=== PATIENT | female | born 1995 | race Caucasian/White ===

== ENCOUNTER 2018-09-07 08:58 | Day surgery (SDC) | payer MEDICAID, OTHER ==
[2018-09-07] MEDS ORDERED: BUPIVACAINE HCL 0.25 % INJ/PF (2.5 MG/1 ML) 30 ML VIAL ONE (09:03)
[2018-09-07] MEDS ORDERED: CLINDAMYCIN 900 MG/D5W RTU 900 MG/50 ML RTUPB IV ONE (09:14)
[2018-09-07] MEDS ORDERED: DEXMEDETOMIDINE INJ 80 MCG/20 ML VIAL IV ONE (09:42)
[2018-09-07] MEDS ORDERED: EPHEDRINE SULFATE INJ 50 MG/1 ML AMPULE ONE (09:42)
[2018-09-07] MEDS ORDERED: MIDAZOLAM 2 MG/2 ML INJ ONE (09:42)
[2018-09-07] MEDS ORDERED: FENTANYL CITRATE INJ/PF 100 MCG/2 ML AMPUL ONE (09:42)
[2018-09-07] MEDS ORDERED: PROPOFOL INJ 200 MG/20 ML VIAL IV ONE (09:42)
[2018-09-07] MEDS ORDERED: ACETAMINOPHEN 1,000 MG/100 ML RTUPB IV ONE (09:44)
[2018-09-07 10:00] LABS: HEMATOCRIT 41.9 % (36.0-47.0); MEAN CORPUSCULAR HEMOGLOBIN 30.4 pg (27.0-33.4); MEAN CORPUSCULAR HGB CONC 33.5 g/dL (32.0-36.0); MEAN CORPUSCULAR VOLUME 91 fl (80-97); PLATELET COUNT 177 10^3/uL (150-450); RED BLOOD COUNT 4.62 10^6/uL (3.72-5.28); RED CELL DISTRIBUTION WIDTH 12.2 % (11.5-14.0); WHITE BLOOD COUNT 4.1 10^3/uL (4.0-10.5)
[2018-09-07] MEDS ORDERED: FENTANYL CITRATE INJ/PF 100 MCG/2 ML AMPUL IV PRN ×3 (10:54)
[2018-09-07] MEDS ORDERED: DIPHENHYDRAMINE HCL 50 MG/ML VIAL IV PRN (10:54)
[2018-09-07] MEDS ORDERED: MEPERIDINE HCL/PF INJ 25 MG/1 ML DISP.SYRIN IV PRN (10:54)
[2018-09-07] MEDS ORDERED: ONDANSETRON HCL INJ/PF 4 MG/2 ML SDV IV PRN (10:54)
[2018-09-07] MEDS ORDERED: PROMETHAZINE HCL INJ 25 MG/1 ML VIAL IV PRN ×2 (10:54)
[2018-09-07] MEDS ORDERED: MORPHINE SULFATE 10 MG/ML INJ IV PRN (10:54)
[2018-09-07] MEDS ORDERED: CLINDAMYCIN 900 MG/D5W RTU 900 MG/50 ML RTUPB IV PRN (11:00)
[2018-09-07] MEDS: FENTANYL CITRATE INJ/PF 100 MCG/2 ML AMPUL ONE ×2 (11:52→12:05)
[2018-09-07] MEDS ORDERED: MORPHINE SULFATE 10 MG/ML INJ IM PRN (12:12)
[2018-09-07] MEDS ORDERED: HYDROCODONE/ACETAMINOPHEN 5-325 MG TABLET PO PRN ×2 (12:13)
[2018-09-07] MEDS ORDERED: IBUPROFEN 800 MG TABLET PO PRN (12:13)
--- NOTE | 2018-09-07 12:24 | OPERATIVE REPORT E ---
Operative Report NAME: HARSHIL ANDUJAR : 1995 AGE: 22Y DATE OF SURGERY: 09/07/2018 ROOM: PREOPERATIVE DIAGNOSIS: Endometrioma of cutaneous scar. POSTOPERATIVE DIAGNOSIS: Endometrioma of cutaneous scar. OPERATION: Excision of endometrioma of cutaneous scar. SURGEON: JACKIE SALMON M.D. TECHNICAL PROJECT MANAGER: Carissa Tavarez 1st rn first assistant surgical elastic knitter ANESTHESIA: Rick Hinkle M.D. with an LMA. FINDINGS: A 5 cm long endometrioma incorporating the fascia. COMPLICATIONS: None. ESTIMATED BLOOD LOSS: 100 mL. SPECIMENS REMOVED: Endometrioma. PROCEDURE IN DETAIL: The patient was taken to the operating room, prepared and draped in a normal sterile fashion in a supine position. The abdomen was marked in the midline after palpating the lesion, and the skin was scored with a #10 blade. The incision was extended with the #10 blade down until the endometrioma was palpable in the cutaneous tissue. The endometrioma was then grasped with a Sania for manipulation, and using Metzenbaums and the scalpel as needed the lesion was excised using careful dissection. As we went deeper we found that the fascia was incorporated into the lesion. Therefore, when we reached the fascia, the fascia was excised and extended around the lesion using the scalpel and Metzenbaums as needed. Once we were able to completely undermine the lesion, the lesion was then amputated using the Metzenbaums. The fascia was then closed using 0 PDS and the subcutaneous layer was closed with interrupted plain catgut. The skin was then closed with 4-0 Vicryl. The incision was copiously irrigated during the procedure using sterile water, and the incision was also injected with 20 mL of lidocaine with epinephrine for anesthesia and hemostasis. The patient tolerated the procedure well. Sponge, lap, and needle counts were correct x2, and the patient was taken to recovery in stable condition. DICTATING PHYSICIAN: JACKIE SALMON M.D. [id number] PHY#: [id number] ID: [id number] JOB#: [id number] ACCT: [id number] cc:JACKIE SALMON M.D. >
[2018-09-07] MEDS ORDERED: IBUPROFEN 800 MG TABLET ONE (12:41)
[2018-09-07 13:15] VITALS: BP 117/82
[2018-09-07] MEDS ORDERED: RINGERS SOLUTION,LACTATED 1,000 ML IV PRN (13:27)
[2018-09-07] MEDS ORDERED: ONDANSETRON HCL INJ/PF 4 MG/2 ML SDV ONE (14:12)
[2018-09-07] MEDS ORDERED: KETOROLAC TROMETHAMINE 60 MG/2 ML SDV ONE (14:12)
[2018-09-07] MEDS ORDERED: SUCCINYLCHOLINE CHLORIDE INJ 200 MG/10 ML VIAL ONE (14:12)
[2018-09-07] MEDS ORDERED: DEXAMETHASONE SOD PHOSPHATE INJ 4 MG/1 ML VIAL ONE (14:12)
[2018-09-07] MEDS ORDERED: LIDOCAINE 2% INJ-PF (20 MG/ML) 2 ML AMPUL ONE (14:12)
[2018-09-07] MEDS ORDERED: METOCLOPRAMIDE HCL INJ/PF 10 MG/2 ML SDV ONE (14:12)
== END 2018-09-07 13:45 | disposition home or self-care (01) ==
LOC: OROUT 08:58
PROVIDERS: ATTEND Obstetrics & Gynecology
DX: N80.6 Endometriosis in cutaneous scar (principal); R10.9 Unspecified abdominal pain
CPT/HCPCS: 36415; 84703; 85027; 88305 ×2; 58999; J2250; J1100; J3490 ×4; J1885; J3010; J2765; J0330; J2405; J2704; J0131; 840

== ENCOUNTER 2019-11-28 09:13 | Inpatient (IN) | payer OTHER ==
[2019-11-28 09:33] LABS: ABSOLUTE LYMPHOCYTES (AUTO) 1.4 10^3/uL (0.5-4.7); ABSOLUTE MONOCYTES (AUTO) 0.4 10^3/uL (0.1-1.4); ABSOLUTE NEUT (AUTO) 4.8 10^3/uL (1.7-8.2); BASOPHILS % (AUTO) 0.3 % (0-2); EOSINOPHILS % (AUTO) 0.7 % (0-6); HEMATOCRIT 35.2 % (36.0-47.0); LYMPHOCYTES % (AUTO) 20.9 % (13-45); MEAN CORPUSCULAR HGB CONC 34.2 g/dL (32.0-36.0); MEAN CORPUSCULAR VOLUME 88 fl (80-97); MONOCYTES % (AUTO) 6.5 % (3-13); PLATELET COUNT 113 10^3/uL (150-450); RED BLOOD COUNT 4.01 10^6/uL (3.72-5.28); RED CELL DISTRIBUTION WIDTH 12.8 % (11.5-14.0); SEGMENTED NEUTROPHILS % (AUTO) 71.6 % (42-78); TOTAL CELLS COUNTED % (AUTO) 100 %; WHITE BLOOD COUNT 6.6 10^3/uL (4.0-10.5)
[2019-11-28 09:35] LABS: APPEARANCE,URINE CLEAR; BILIRUBIN,URINE NEGATIVE (NEGATIVE); COLOR,URINE YELLOW; GLUCOSE, URINE NEGATIVE (NEGATIVE); KETONES,URINE NEGATIVE (NEGATIVE); LEUKOCYTE ESTERASE,URINE NEGATIVE (NEGATIVE); NITRITE,URINE NEGATIVE (NEGATIVE); PROTEIN,URINE NEGATIVE (NEGATIVE); UROBILINOGEN,URINE NEGATIVE mg/dL (<2.0)
[2019-11-28 09:57] LABS: URINE AMPHETAMINES SCREEN NEGATIVE; URINE BARBITURATES SCREEN NEGATIVE; URINE BENZODIAZEPINES SCREEN NEGATIVE; URINE COCAINE SCREEN NEGATIVE; URINE MARIJUANA (THC) SCREEN NEGATIVE; URINE METHADONE SCREEN NEGATIVE; URINE PHENCYCLIDINE SCREEN NEGATIVE
[2019-11-28 11:02] LABS: CHLAM PCR NOT DETECTED (NOT DETECT)
[2019-12-04] MEDS ORDERED: LIDOCAINE 0.5% INJ-PF (5 MG/ML) 50 ML SDV SUBCUT PRN (05:00)
[2019-12-04] MEDS ORDERED: CEFAZOLIN SODIUM 2 GM in DEXTROSE 5%-WATER 100 ML IV PRN (05:00)
[2019-12-04] MEDS ORDERED: CEFAZOLIN 2 GM/D5W RTU 2 GM/50 ML RTUPB IV PRN (05:00)
[2019-12-04] MEDS ORDERED: LACTATED RINGERS 1000 ML IV PRN (05:00)
[2019-12-04] MEDS ORDERED: RINGERS SOLUTION,LACTATED 1,000 ML IV PRN ×2 (07:59→11:42)
[2019-12-04] MEDS ORDERED: RINGERS SOLUTION,LACTATED 1,000 ML IV ONE (08:00)
[2019-12-04] MEDS ORDERED: OXYTOCIN/0.9 % SODIUM CHLORIDE 30 UNIT/500 ML RTUINJ ONE (10:08)
[2019-12-04] MEDS ORDERED: MIDAZOLAM 2 MG/2 ML INJ ONE (10:08)
[2019-12-04] MEDS ORDERED: EPHEDRINE SULFATE INJ 50 MG/1 ML AMPULE ONE (10:08)
[2019-12-04] MEDS ORDERED: ACETAMINOPHEN 1,000 MG/100 ML RTUPB IV ONE (10:08)
[2019-12-04] MEDS ORDERED: FENTANYL CITRATE INJ/PF 100 MCG/2 ML AMPUL ONE (10:08)
[2019-12-04] MEDS ORDERED: BUPIVACAINE HCL 0.25 % INJ/PF (2.5 MG/1 ML) 30 ML VIAL ONE (10:08)
[2019-12-04] MEDS ORDERED: KETOROLAC TROMETHAMINE INJ/PF 30 MG/1 ML SDV ONE (10:08)
[2019-12-04] MEDS ORDERED: GLYCOPYRROLATE INJ 0.4 MG/2 ML VIAL ONE (10:08)
[2019-12-04] MEDS ORDERED: OXYTOCIN 10 UNIT/ML VIAL ONE (10:08)
[2019-12-04] MEDS ORDERED: ONDANSETRON HCL INJ/PF 4 MG/2 ML SDV ONE (10:09)
[2019-12-04] MEDS ORDERED: MEPERIDINE HCL/PF INJ 25 MG/1 ML DISP.SYRIN IV PRN (11:25)
[2019-12-04] MEDS ORDERED: PROMETHAZINE HCL INJ 25 MG/1 ML VIAL IV PRN ×3 (11:25→11:42)
[2019-12-04] MEDS ORDERED: DIPHENHYDRAMINE HCL 50 MG/ML VIAL IV PRN (11:25)
[2019-12-04] MEDS ORDERED: FENTANYL CITRATE INJ/PF 100 MCG/2 ML AMPUL IV PRN ×3 (11:25)
[2019-12-04] MEDS ORDERED: DIPH/PERTUSS(ACELL)/TETANUS VAC/PF 0.5 ML SYR (>=10YO) IM PRN (11:42)
[2019-12-04] MEDS ORDERED: MEASLES,MUMPS&RUBELLA VACC/PF 0.5 ML VIAL SUBCUT PRN (11:42)
[2019-12-04] MEDS ORDERED: OXYTOCIN/0.9 % SODIUM CHLORIDE 30 UNIT/500 ML RTUINJ IV PRN (11:42)
[2019-12-04] MEDS ORDERED: SIMETHICONE 80 MG TAB.CHEW PO PRN (11:42)
[2019-12-04] MEDS ORDERED: ACETAMINOPHEN 1,000 MG/100 ML RTUPB IV PRN (11:42)
[2019-12-04] MEDS ORDERED: MORPHINE SULFATE 10 MG/ML INJ IV PRN (11:42)
[2019-12-04] MEDS ORDERED: ACETAMINOPHEN 325 MG TABLET PO PRN (11:42)
--- NOTE | 2019-12-04 11:48 | Operative Report ---
Operative Report DATE OF SURGERY: 12/04/19 PREOPERATIVE DIAGNOSIS: IUP at 38 weeks and 2 days, previous classical section, previous low transverse hysterotomy section POSTOPERATIVE DIAGNOSIS: Same OPERATION: Repeat low transverse hysterotomy section SURGEON: JACKIE SALMON ANESTHESIA: Spinal COMPLICATIONS: None ESTIMATED BLOOD LOSS: 850 cc INTRAOPERATIVE FINDINGS: Male cephalic presentation Apgars of 8 and 9, dense fascial adhesions of the rectus muscle to the fascia, multiple lower uterine adhesions, bladder was not affected, uterine window in the lower uterine segment PROCEDURE: PROCEDURE IN DETAIL: The patient was taken to the operating room, prepared and draped in a normal sterile fashion in a supine position with a leftward tilt. A transverse skin incision was made with a scalpel and carried through to the underlying layer of fascia with the same scalpel. The fascia was excised in the midline and extended laterally with Rowdy. The fascia was then dissected from the rectus muscle sharply with Rowdy and the rectus muscle was divided and the peritoneal cavity was entered sharply with the same Metzenbaum. With good visualization of the bladder and the uterus the bladder blade was inserted. The hysterotomy was nicked with a scalpel and extended laterally with surgeon finger fraction. The was then delivered atraumatically. The nose and mouth were suctioned with a suction bulb, the cord was clamped and cut and handed off to awaiting pediatricians. Cord blood was collected. The placenta was removed manually. The uterus was exteriorized and cleared of clots and debris. The hysterotomy was closed with 0 Monocryl in a running, locked fashion. A second layer of the same suture was used to imbricate to ensure hemostasis. The uterus was returned to the abdomen and peritoneal cavity was cleared of clots and debris. A piece of Interceed was placed over the hysterotomy to help with adhesion prevention for the future the rectus muscle and peritoneum were repaired with mattress stitch of 2-0 Chromic. The fascia was closed with 0-Vicryl. The subcutaneous layer was closed with plain catgut and the skin was closed with 4-0 Vicryl. The patient tolerated the procedure well. Sponge, lap, and needle counts correct x2 and the patient was taken to recovery in stable condition.
--- NOTE | 2019-12-04 12:48 | Birth Certificate Data ---
Cert Data Datetime Report Generated by CPN: 12/04/2019 12:48 Mother's Height 50b. Height Inches: 61 (12/04/2019 11:33:QS system process) Mother's Weight 51b. Weight at Delivery (lbs): 143 (12/04/2019 11:33:QS system process) Onset of Labor 56a. PROM >12 Hrs: 0.02 (12/04/2019 11:04:QS system process) 57a. Induction of Labor: N/A (12/04/2019 11:04:Diamond Sheppard RN) 57c. Non-Vertex Presentation A: Vertex (12/04/2019 11:04:Diamond Sheppard RN) 57d. Steroids - Lung Mat: None (12/04/2019 11:04:Diamond Sheppard RN) 57d. Steroids - Lung Mat: Not Applicable (12/04/2019 11:04:Diamond Sheppard RN) 57g. Moderate/Heavy Meconium: Clear (12/04/2019 11:04:Diamond Sheppard RN) 57h. Intolerance of Labor: Repeat Elective (12/04/2019 11:04:Diamond Sheppard RN) 57i. Epidural/Spinal Anesthesia: None (12/04/2019 11:04:Diamond Sheppard RN) Method of Delivery 58a. Forceps - Unsuccessful A: N/A (12/04/2019 11:04:Diamond Sheppard RN) 58b. Vacuum - Unsuccessful A: N/A (12/04/2019 11:04:Diamond Sheppard RN) 58c. Presentation at 58c. Presentation at - A : Vertex (12/04/2019 11:04:Diamond Sheppard RN) 58c. Presentation at - A : N/A (12/04/2019 11:04:Diamond Sheppard RN) 58c. Presentation at - A : Cephalic (12/04/2019 11:04:Diamond Sheppard RN) Final Route and Method of Del 58d. Baby A Route/Delivery: (12/04/2019 11:04:Diamond Sheppard RN) 58e. Trial of Labor Attempted: No (12/04/2019 11:04:Diamond Sheppard RN) 58e. Trial of Labor Attempted A: N/A (12/04/2019 11:04:Diamond Sheppard RN) 58e. Trial of Labor Attempted B: N/A (12/04/2019 11:04:Diamond Sheppard RN) Birthweight Baby A: 3290 (12/04/2019 11:04:Machelle Lopez RN) 60a. Pounds : 7 (12/04/2019 11:04:QS system process) 60b. Ounces: 4 (12/04/2019 11:04:QS system process) 61. GA at Delivery Baby A: 38.2 (12/04/2019 11:04:Diamond Sheppard RN) : Early Term- 37- 38.6 Weeks (12/04/2019 11:04:QS system process) 62a. 5 Minute Baby A: 9 (12/04/2019 11:04:QS system process)
--- NOTE | 2019-12-04 12:48 | Delivery Summary ---
Del Sum A-C Datetime Report Generated by CPN: 12/04/2019 12:48 DELIVERY PERSONNEL DELIVERY PERSONNEL: [id number] Delivery Doctor:: Nataliya Michel MD Anesthesiologist:: Marian QUIROZ MINE WIRER:: Flaco Normile MINE WIRER Agricultural Research Engineer:: Diamond Sheppard RN Neonatal Nurse Practitioner:: TIA Fishman Nursery Nurse:: Machelle Lopez RN Student Observers:: Apple Watkins CST Repair Manager/WILDLIFE CONSERVATION PROFESSOR: ST Kamla Repair Manager/WILDLIFE CONSERVATION PROFESSOR: Liss Potter CST Additional Personnel: : Lotus Reese CST MATERNAL INFORMATION Delivery Anesthesia: Spinal Medications After Delivery: Pitocin 30 Units in 500ml NS/D5W; Pitocin Drip 20 Units/1000ml NSS Estimated Blood Loss (ml): 235 Maternal Complications: None LABOR SUMMARY EDC: 12/16/2019 00:00 No. Babies in Womb: 1 Attempted: No Labor Anesthesia: None LABOR INFORMATION Reason for Induction: Not Applicable Oxytocin: N/A Group B Beta Strep: Negative Antibiotics # of Doses: 0 Name of Antibiotic Given: n/a Steroids Given: None Reason Steroids Not Administered: Not Applicable MEMBRANES Membranes Rupture Method: Artificial Rupture of Membranes: 12/04/2019 11:00 Length of Rupture (hr): 0.02 Amniotic Fluid Color: Clear Amniotic Fluid Amount: Small Amniotic Fluid Odor: Normal STAGES OF LABOR Stage 3 hr: 0 Stage 3 min: 2 VAGINAL DELIVERY Episiotomy: None Laceration Extension #1: N/A Laceration Repair: Not Applicable Sponge Count Correct: N/A CSECTION DELIVERY Primary Indication: Repeat Elective CSection Urgency: Scheduled CSection Incidence: Repeat Labor: No Labor Elective: Elective CSection Incision: Lower Uterine Transverse BABY A INFORMATION Delivery Date/Time: 12/04/2019 11:01 Method of Delivery: Nurse Controlled Delivery: No Born in Route : No : N/A Forceps: N/A Vacuum Extraction: N/A Shoulder Dystocia : No PRESENTATION/POSITION BABY A Presentation: Cephalic Cephalic Presentation: Vertex Breech Presentation: N/A PLACENTA INFORMATION BABY A Placenta Delivery Time : 12/04/2019 11:03 Placenta Method of Delivery: Manual Removal Placenta Status: Delivered SCORES BABY A Heart Rate 1 min: >100 bpm Resp Effort 1 min: Good Cry Reflex Irritability 1 min: Cough or Sneeze or Pulls Away Muscle Tone 1 min: Active Motion Color 1 min: Body [place], Extremities Blue SCORE 1 MIN: 9 Heart Rate 5 min: >100 bpm Resp Effort 5 min: Good Cry Reflex Irritability 5 min: Cough or Sneeze or Pulls Away Muscle Tone 5 min: Active Motion Color 5 min: Body [place], Extremities Blue SCORE 5 MIN: 9 INFORMATION BABY A Gestational Age at Delivery: 38.2 Gestational Status: Early Term- 37- 38.6 Weeks Outcome : Liveborn Infant Condition : Stable Sex: Male IDENTIFICATION BABY A Verification Date/Time: 12/04/2019 11:05 ID Band Number: [id number] Mother's Name Verified: Yes Infant RN Verifying Infant: a gore rn Additional Verifying Personnel: [employer] 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 Cord Vessels: 3 Nuchal Cord : N/A True Knot: 0 Cord Blood Taken: Yes-For Storage (Mom's Blood type +) Infant Suction: None ASSESSMENT BABY A Infant Complications: None Physical Findings at Delivery: Within Normal Limits; Bruising Infant Respirations: Appears Normal Skin to Skin: No Skin to Skin Time (min): 0 Transferred To: Nursery BABY B INFORMATION : N/A ASSESSMENT BABY B Infant Complications : None Physical Findings at Delivery: Within Normal Limits; Bruising Respirations : Appears Normal
[2019-12-04] MEDS ORDERED: KETOROLAC TROMETHAMINE INJ/PF 30 MG/1 ML SDV IV SCH (14:00)
[2019-12-04] MEDS: DOCUSATE SODIUM 100 MG CAPSULE PO SCH (17:34)
[2019-12-04] MEDS: KETOROLAC TROMETHAMINE INJ/PF 30 MG/1 ML SDV IV SCH (17:34)
[2019-12-05] MEDS: KETOROLAC TROMETHAMINE INJ/PF 30 MG/1 ML SDV IV SCH (02:45)
[2019-12-05 08:04] LABS: HEMATOCRIT 32.7 % (36.0-47.0); HEMOGLOBIN 11.3 g/dL (12.0-15.5); MEAN CORPUSCULAR HEMOGLOBIN 30.3 pg (27.0-33.4); MEAN CORPUSCULAR HGB CONC 34.4 g/dL (32.0-36.0); MEAN CORPUSCULAR VOLUME 88 fl (80-97); PLATELET COUNT 108 10^3/uL (150-450); RED BLOOD COUNT 3.72 10^6/uL (3.72-5.28); RED CELL DISTRIBUTION WIDTH 12.8 % (11.5-14.0); WHITE BLOOD COUNT 10.1 10^3/uL (4.0-10.5)
[2019-12-05] MEDS: IBUPROFEN 800 MG TABLET PO SCH ×3 (09:07→21:19)
[2019-12-05] MEDS: DOCUSATE SODIUM 100 MG CAPSULE PO SCH ×2 (09:08→17:31)
[2019-12-05] MEDS: PRENATAL VITAMIN W DHA CAPSULE PO SCH (09:09)
[2019-12-05] MEDS ORDERED: IBUPROFEN 800 MG TABLET PO SCH (12:00)
--- NOTE | 2019-12-05 12:59 | PDOC PROGRESS REPORT ---
Subjective-OB Progress Note for:: 12/05/19 Subjective: 23yo L2 s/p repeat ppd1. Pt ambulating, voiding and passing gas without difficulty. Reports pain well controlled with medication. No concerns today. Physical Exam (OB) Vital Signs: Temp Pulse Resp BP Pulse Ox 98.2 F 80 16 120/82 100 12/05/19 12:00 12/05/19 12:00 12/05/19 12:00 12/05/19 12:00 12/05/19 12:00 Intake & Output 12/04/19 12/05/19 12/06/19 06:59 06:59 06:59 Intake Total 880 250 Output Total 1203 330 Balance -323 -80 Weight 64.864 kg - General General Appearance: Appears well In distress: None - PIH/Pre-Eclampsia DTR's: 1 + Clonus: Negative Headache: Absent Epigastric Pain: No Visual Changes: No - Dressing Removed: No Incision: Well Approximated Closure Type: Steri-Strips - Bilateral Tubal Ligation Dressing Removed: No Site: Dressing, Well Approximated - Maternal Morbidity 59. Maternal Morbidity (serious complications experinced by the mother associated with labor and delivery: None of the above - Lochia Lochia Amount: Small 10-25 ml Lochia Color: Rubra/Red - Abdomen Description: Firm Hernia Present: No Fundal Description: Firm Fundal Height: u/u - u/2 - Respiratory Respiratory Status: No respiratory distress - Extremities Upper extremity: Normal inspection Lower extremities: Normal inspection - Neurological Cognition: Normal Orientation: AAOx4 - Psychological Associated symptoms: Normal affect, Normal mood Objective-Diagnostic Laboratory: 12/05/19 07:31 12/05/19 07:31 WBC 10.1 RBC 3.72 Hgb 11.3 L Hct 32.7 L MCV 88 MCH 30.3 MCHC 34.4 RDW 12.8 Plt Count 108 L Assessment and Plan(PN) - Assessment and Plan (1) S/P repeat low transverse Is this a current diagnosis for this admission?: Yes Plan: routine pp care (2) Thrombocytopenia Is this a current diagnosis for this admission?: Yes Plan: Warning s/s reviewed, will repeat cbc in the am (3) History demise Is this a current diagnosis for this admission?: Yes Plan: delivered (4) History of placental abruption Is this a current diagnosis for this admission?: Yes Plan: delivered (5) Qualifiers: Weeks of gestation: 37 weeks Qualified Code(s): Z3A.37 - 37 weeks gestation of Is this a current diagnosis for this admission?: Yes Plan: delivered due to hx of classical incision - Time Spent with Patient Time with patient: Less than 15 minutes Medications reviewed and adjusted accordingly: Yes - Disposition Anticipated Discharge Disposition: Home, Self Care Anticipated Discharge Timeframe: within 24 hours
[2019-12-06] MEDS: IBUPROFEN 800 MG TABLET PO SCH ×3 (03:29→14:25)
--- NOTE | 2019-12-06 09:24 | PDOC DISCHARGE SUMMARY ---
Impression - Admit/DC Date/PCP Admission Date/Primary Care Provider: 12/04/19 07:57 DENIS BARRERA MD Discharge Date: 12/06/19 - Discharge Diagnosis (1) History of placental abruption Is this a current diagnosis for this admission?: Yes (2) History demise Is this a current diagnosis for this admission?: Yes (3) S/P repeat low transverse Is this a current diagnosis for this admission?: Yes (4) Thrombocytopenia Is this a current diagnosis for this admission?: Yes - Additional Information Discharge Diet: Regular Discharge Activity: Balance Activity w/Rest, No Lifting Over 10 Pounds, No Lifting/Push/Pulling, Pelvic Rest, No tub bath Referrals: DENIS BARRERA MD [Primary Care Provider] - Prescriptions: Ibuprofen [Motrin 800 mg Tablet] 800 mg PO Q8HP PRN #90 tablet PRN Reason: Hydrocodone/Acetaminophen [[place] 5-325 Tablet] 1 each PO Q4HP PRN #14 tablet PRN Reason: Home Medications: #57/Iron/FA/Dss/Dha [Tl-Select Dha Softgel] 1 each PO DAILY 11/11/12 Hydrocodone/Acetaminophen [[place] 5-325 Tablet] 1 each PO Q4HP PRN #14 tablet 12/06/19 Ibuprofen [Motrin 800 mg Tablet] 800 mg PO Q8HP PRN #90 tablet 12/06/19 Hospital Course 59. Maternal Morbidity (serious complications experinced by the mother associated with labor and delivery: None of the above Results Laboratory Results: WBC 10.1 10^3/uL (4.0-10.5) 12/05/19 07:31 RBC 3.72 10^6/uL (3.72-5.28) 12/05/19 07:31 Hgb 11.3 g/dL (12.0-15.5) L 12/05/19 07:31 Hct 32.7 % (36.0-47.0) L 12/05/19 07:31 MCV 88 fl (80-97) 12/05/19 07:31 MCH 30.3 pg (27.0-33.4) 12/05/19 07:31 MCHC 34.4 g/dL (32.0-36.0) 12/05/19 07:31 RDW 12.8 % (11.5-14.0) 12/05/19 07:31 Plt Count 108 10^3/uL (150-450) L 12/05/19 07:31 Lymph % (Auto) 20.9 % (13-45) 11/28/19 08:51 Cole % (Auto) 6.5 % (3-13) 11/28/19 08:51 Eos % (Auto) 0.7 % (0-6) 11/28/19 08:51 Baso % (Auto) 0.3 % (0-2) 11/28/19 08:51 Absolute Neuts (auto) 4.8 10^3/uL (1.7-8.2) 11/28/19 08:51 Absolute Lymphs (auto) 1.4 10^3/uL (0.5-4.7) 11/28/19 08:51 Absolute Monos (auto) 0.4 10^3/uL (0.1-1.4) 11/28/19 08:51 Absolute Eos (auto) 0.0 10^3/uL (0.0-0.6) 11/28/19 08:51 Absolute Basos (auto) 0.0 10^3/uL (0.0-0.2) 11/28/19 08:51 Seg Neutrophils % 71.6 % (42-78) 11/28/19 08:51 POC Glucose 70 mg/dL (70-110) 12/04/19 08:58 Urine Color YELLOW 11/28/19 08:00 Urine Appearance CLEAR 11/28/19 08:00 Urine pH 7.0 (5.0-9.0) 11/28/19 08:00 Ur Specific [place] 1.010 11/28/19 08:00 Urine Protein NEGATIVE mg/dL (NEGATIVE) 11/28/19 08:00 Urine Glucose (UA) NEGATIVE mg/dL (NEGATIVE) 11/28/19 08:00 Urine Ketones NEGATIVE mg/dL (NEGATIVE) 11/28/19 08:00 Urine Blood NEGATIVE (NEGATIVE) 11/28/19 08:00 Urine Nitrite NEGATIVE (NEGATIVE) 11/28/19 08:00 Urine Bilirubin NEGATIVE (NEGATIVE) 11/28/19 08:00 Urine Urobilinogen NEGATIVE mg/dL (<2.0) 11/28/19 08:00 Ur Leukocyte Esterase NEGATIVE (NEGATIVE) 11/28/19 08:00 Urine WBC (Auto) 1 /HPF 11/28/19 08:00 Squamous Epi Cells Auto 1 /HPF 11/28/19 08:00 Urine Mucus (Auto) RARE /LPF 11/28/19 08:00 Urine Ascorbic Acid NEGATIVE (NEGATIVE) 11/28/19 08:00 Urine Opiates Screen NEGATIVE 11/28/19 08:51 Urine Methadone Screen NEGATIVE 11/28/19 08:51 Ur Barbiturates Screen NEGATIVE 11/28/19 08:51 Ur Phencyclidine Scrn NEGATIVE 11/28/19 08:51 Ur Amphetamines Screen NEGATIVE 11/28/19 08:51 U Benzodiazepines Scrn NEGATIVE 11/28/19 08:51 Urine Cocaine Screen NEGATIVE 11/28/19 08:51 U Marijuana (THC) Screen NEGATIVE 11/28/19 08:51 Chlamydia DNA (PCR) NOT DETECTED (NOT DETECT) 11/28/19 08:51 COVID-19 Source NASOPHARYNGEAL 11/28/19 08:59 COVID-19 (DEION) NOT DETECTED 11/28/19 08:59 N.gonorrhoeae DNA (PCR) NOT DETECTED (NOT DETECT) 11/28/19 08:51 Blood Type A POSITIVE 12/03/19 15:48 Antibody Screen NEGATIVE 12/03/19 15:48 Plan Plan of Treatment: follow up in one week at [facility] for post incision check
[2019-12-06] MEDS: DOCUSATE SODIUM 100 MG CAPSULE PO SCH (09:31)
[2019-12-06] MEDS: PRENATAL VITAMIN W DHA CAPSULE PO SCH (09:31)
[2019-12-06 11:40] VITALS: BP 124/76
== END 2019-12-06 15:16 | disposition home or self-care (01) | DRG 806 ==
LOC: 2S 12-04 07:57
PROVIDERS: ADMIT Obstetrics & Gynecology; ATTEND Obstetrics & Gynecology
PROC: 10E0XZZ Delivery of Products of Conception, External Approach (ICD-10-PCS; principal; 2019-12-04)
DX: O24.420 Gestational diabetes mellitus in childbirth, diet controlled (principal); O99.12 Other diseases of the blood and blood-forming organs and certain disorders involving the immune mechanism complicating childbirth; Z37.0 Single live birth; O34.219 Maternal care for unspecified type scar from previous cesarean delivery; O34.211 Maternal care for low transverse scar from previous cesarean delivery; Z87.59 Personal history of other complications of pregnancy, childbirth and the puerperium; O99.89 Other specified diseases and conditions complicating pregnancy, childbirth and the puerperium; N73.6 Female pelvic peritoneal adhesions (postinfective); Z3A.37 37 weeks gestation of pregnancy; Z20.828 Contact with and (suspected) exposure to other viral communicable diseases
CPT/HCPCS: 1961; 36415; 59025; 64486; 76942; 80307; 81001; 82962; 85025; 85027; 86850; 86900; 86901; 87491; 87591; 87635; 94760; 94799; C1765; C9803; J0131; J0690; J1885; J2250; J2405; J2590; J3010; J3490

== ENCOUNTER → 2019-12-03 | Outpatient (CLI) | payer OTHER | LOC: LAB 15:12 | PROVIDERS: ATTEND Specialist | DX: Z53.8 Procedure and treatment not carried out for other reasons (principal) ==